=== PATIENT | female | born 1960 | race Caucasian/White ===

== ENCOUNTER → 2019-05-03 | Outpatient (CLI) | payer BC ==
[~2019-05-03] MED LIST: GLUC1TAB26 PO; LISI-334 PO; WARF7.5T45 PO
--- NOTE | 2019-05-03 15:56 | RAD ---
Exam: VENOUS LOWER EXTREMITY RIGHT Indication: Right leg pain Technique: Color-flow and pulsed wave duplex ultrasound with compression of venous structures of the right lower extremity. Comparison: None Available. Findings: Technically difficult examination due to patient's habitus. Duplex ultrasound with compression of the deep venous structures of the right lower extremity from the common femoral vein through the popliteal vein is negative for DVT. The posterior tibial and peroneal veins are segmentally visualized and patent where seen. Normal venous waveforms and augmentation are noted throughout. Impression: No evidence for DVT in the right lower extremity. Electronically signed by: Elia Tavera MD (05/03/2019 3:54 PM) [facility]
== END | disposition home or self-care (01) ==
LOC: DXRAD 14:49
PROVIDERS: ATTEND Family Medicine
DX: M79.604 Pain in right leg (principal)
CPT/HCPCS: 93971

== ENCOUNTER → 2020-12-04 | Outpatient (CLI) | payer BC ==
[~2020-12-04] MED LIST changes: -LISI-334 PO; +LISI20TA18 PO
--- NOTE | 2020-12-04 19:27 | CARD ---
MR#: [id number] Date of Study: 12/04/2020 Ordering Physician: MITCHELL RUIZ, Referring Physician: MITCHELL RUIZ, Tech: Lyubov Carrington, [facility] APPROVED REPORT EXAM: Two-dimensional and M-mode echocardiogram with Doppler and color Doppler. Other Information Quality : AverageHR: 74bpm Technically limited study due to INDICATION Congestive Heart Failure RISK FACTORS Hypertension Hyperlipidemia 2D DIMENSIONS RVDd3.3 (2.9-3.5cm)Left Atrium(2D)3.5 (1.6-4.0cm) IVSd1.4 (0.7-1.1cm)Aortic Root(2D)3.1 (2.0-3.7cm) LVDd5.4 (3.9-5.9cm)LVOT Diameter2.0 (1.8-2.4cm) PWd1.4 (0.7-1.1cm)LVDs4.0 (2.5-4.0cm) FS (%) 25.6 %SV70.3 ml LVEF(%)50.0 (>50%) Aortic Valve AoV Peak Jono.250.1cm/sAoV VTI51.4cm AO Peak GR.25.0mmHgLVOT Peak Jono.106.2cm/s LVOT VTI 24.08cmAO Mean GR.15mmHg DAYANNA (VMAX)1.57ut7LYP (VTI)1.50cm2 Mitral Valve MV E Aeuwkdma84.9cm/sMV DECEL UZIF170yn MV A Xkxtrcbe73.1cm/sE/A Ratio0.9 Pulmonary Valve PV Peak Gwlljuws26.9cm/sPV Peak Grad.3mmHg Tricuspid Valve TR P. Loywhajw351bx/sRAP QUOFRTWF8ljUn TR Peak Gr.07doFzCBZR77xxPa Pulmonary Vein S1 Vjqfzwjn33.6cm/sD2 [place]83.4cm/s LEFT VENTRICLE The left ventricle is normal size. There is moderate concentric left ventricular hypertrophy. The lef t ventricular systolic function is normal and the ejection fraction is within normal range. The Eject ion Fraction is 55-60%. There is normal LV segmental wall motion. Transmitral Doppler flow pattern is Grade I-abnormal relaxation pattern. RIGHT VENTRICLE The right ventricle is mildly dilated. There is normal right ventricular wall thickness. The right ve ntricular systolic function is normal. ATRIA The left atrium size is normal. The right atrium is borderline dilated. The interatrial septum is int act with no evidence for an atrial septal defect or patent foramen ovale as noted on 2-D or Doppler i maging. AORTIC VALVE The aortic valve is thickened but opens well. Doppler and Color Flow revealed no significant aortic r egurgitation. Calculated aortic valve area is 1.6 cm2 with maximum pressure gradient of 25 mmHg and m mg pressure gradient of 15 mmHg. There is trace valvular aortic stenosis. MITRAL VALVE The mitral valve is normal in structure and function. There is no evidence of mitral valve prolapse. There is no mitral valve stenosis. Doppler and Color-flow revealed trace mitral regurgitation. TRICUSPID VALVE The tricuspid valve is normal in structure and function. Doppler and Color Flow revealed trace tricus pid regurgitation with an estimated PAP of 31 mmHg. There is no tricuspid valve stenosis. PULMONIC VALVE The pulmonic valve is not well visualized. Doppler and Color Flow revealed trace pulmonic valvular re gurgitation. There is no pulmonic valvular stenosis. GREAT VESSELS The aortic root is normal in size. The ascending aorta is mildly dilated measuring 3.8 cm. The IVC is normal in size and collapses >50% with inspiration. PERICARDIAL EFFUSION There is no evidence of significant pericardial effusion. Critical Notification Critical Value: No <Conclusion> The left ventricular systolic function is normal and the ejection fraction is within normal range. T he Ejection Fraction is 55-60%. There is normal LV segmental wall motion. The ascending aorta is mildly dilated measuring 3.8 cm. Transmitral Doppler flow pattern is Grade I (mild diastolic dysfunction)-abnormal relaxation pattern. Signed by : Jurgen Barriga, Electronically Approved : 12/04/2020 19:26:52
== END ==
LOC: ECHO 14:46
PROVIDERS: ATTEND Family Medicine
DX: I35.8 Other nonrheumatic aortic valve disorders (principal); I50.32 Chronic diastolic (congestive) heart failure; I51.7 Cardiomegaly
CPT/HCPCS: 93306

== ENCOUNTER 2020-12-27 12:56 | Emergency (ER) | payer BC ==
[~2020-12-27] VITALS: Ht 172.7 cm; Wt 153.8 kg
[2020-12-27] MEDS ORDERED: ONDANSETRON PF 4 MG/2 ML VIAL. IVP ONE (13:30)
--- NOTE | 2020-12-27 13:52 | EKG ---
[address] [address] Test Date: 2020-12-27 Test Time: 13:42:08 Pat Name: BRIEN BOSWELL Department: Room: Gender: F Stepdown Nurse: ALECIA : [id number] Requested By: EMILY GUERRA Order Number: [id number] Reading MD: Measurements Intervals Cameron Rate: 95 P: 39 WV: 142 QRS: 19 QRSD: 90 T: 24 QT: 330 QTc: 418 Interpretive Statements SINUS RHYTHM VENTRICULAR PREMATURE COMPLEX(ES) ABNORMAL ECG RI6.02 No previous ECG available for comparison
[2020-12-27 14:00] VITALS: BP 140/74
[2020-12-27 14:05] LABS: BASO % 0 % (0-3); EOS % 0 % (0-3); HEMATOCRIT 40.6 % (36.0-47.0); HEMOGLOBIN 13.9 g/dL (12.0-15.5); LYMPH # 1.6 x10^3/uL (1.0-4.8); LYMPH % 28 % (24-48); MEAN CORPUSCULAR HEMOGLOBIN 29 pg (25-35); MEAN CORPUSCULAR HGB CONC 34 g/dL (31-37); MEAN CORPUSCULAR VOLUME 85 fL (79-100); MONO # 0.4 x10^3/uL (0.0-1.1); MONO % 7 % (0-9); NEUT # 3.8 x10^3uL (1.8-7.7); NEUT % 65 % (31-73); PLATELET COUNT 191 x10^3/uL (140-400); RED BLOOD COUNT 4.78 x10^6/uL (3.50-5.40); RED CELL DISTRIBUTION WIDTH 15.8 % (11.5-14.5); WHITE BLOOD COUNT 5.8 x10^3/uL (4.0-11.0)
--- NOTE | 2020-12-27 14:08 | RAD ---
EXAM: Chest, single view. HISTORY: Shortness of air. COMPARISON: None. FINDINGS: A frontal view of the chest obtained. There is suspected bilateral lower lobe interstitial infiltrate. There is no consolidation, pleural effusion or pneumothorax. There is enlargement of the cardiac silhouette, a component which is likely accentuated due to portable technique. IMPRESSION: . 1. Suspected bilateral lower lobe interstitial infiltrate. 2. Cardiomegaly. Electronically signed by: Екатерина Rosas MD (12/27/2020 2:06 PM) [id number]
[2020-12-27 14:13] LABS: CALCIUM 8.4 mg/dL (8.5-10.1); CREATININE 0.7 mg/dL (0.6-1.0); GFR 85.9; POTASSIUM 4.4 mmol/L (3.5-5.1)
[2020-12-27 14:30] LABS: ALBUMIN 3.7 g/dL (3.4-5.0); ALBUMIN/GLOBULIN RATIO 1.1 (1.0-1.7); MAGNESIUM 2.1 mg/dL (1.8-2.4); TOTAL BILIRUBIN 0.8 mg/dL (0.2-1.0)
[2020-12-27] MEDS ORDERED: PRED50TA PO (15:01)
[2020-12-27] MEDS ORDERED: ALBU2.5V8 INH (15:02)
[2020-12-27] MEDS ORDERED: ONDA4TAB12 PO (15:02)
[2020-12-27] MEDS ORDERED: AMOX1TAB61 PO (15:02)
--- NOTE | 2020-12-27 15:02 | PHYS DOC ---
Past History Past Medical History: DVT, High Cholesterol, Hypertension Additional Past Medical Histor: PE Past Surgical History: No Surgical History Additional Past Surgical Histo: Left Knee Tear/repair Smoking: Non-smoker Alcohol Use: None Drug Use: None Adult General Chief Complaint Chief Complaint: ABDOMINAL PAIN [facility] HPI Patient is a 60-year-old female patient with history of high cholesterol, hypertension, PEs on Xarelto, who presents to the ED today complaining of mild intermittent low back pain with nausea, symptoms began 4 days ago after being exposed to Covid. Patient states she went to [facility] without a mask and several people in the [facility] tested positive for Covid. Patient denies any chest pain. She states she has shortness of breath only when she has a mask on. Denies any abdominal pain. Denies anything specifically relieving her back pain but states she has had similar back pain before. Denies any trauma. Denies any numbness or tingling to bilateral lower extremities. Denies any loss of bowel/bladder functi on. Review of Systems Review of Systems Constitutional: Denies fever or chills [] Eyes: Denies change in visual acuity, redness, or eye pain [] HENT: Denies nasal congestion or sore throat [] Respiratory: Denies cough or shortness of breath [] Cardiovascular: No additional information not addressed in HPI [] GI: Reports nausea. Denies abdominal pain, vomiting, bloody stools or diarrhea [] : Denies dysuria or hematuria [] Musculoskeletal: Reports low back pain Integument: Denies rash or skin lesions [] Neurologic: Denies headache, focal weakness or sensory changes [] All other systems were reviewed and found to be within normal limits, except as documented in this note. Current Medications Current Medications Current Medications Medications (Trade) Dose Ordered Sig/[facility] Start Time Stop Time Status Last Admin Dose Admin Ondansetron HCl (Zofran) 4 mg 1X ONCE 12/27/20 13:30 12/27/20 13:37 DC Allergies Allergies Allergies Coded Allergies Type Severity Reaction Last Updated Verified levofloxacin Allergy Unknown numbness, chest pain 12/22/13 Yes oxycodone HCl Allergy Unknown numbness and chest pain 12/22/13 Yes Physical Exam Physical Exam Constitutional: Overweight patient, no acute distress, non-toxic appearance. [] HENT: Normocephalic, atraumatic, bilateral external ears normal, oropharynx moist, no oral exudates, nose normal. [] Eyes: PERRLA, EOMI, conjunctiva normal, no discharge. [] Neck: Normal range of motion, no tenderness, supple, no stridor. [] Cardiovascular:Heart rate regular rhythm, no murmur [] Lungs & Thorax: Short of air on exertion, diminished breath sounds posteriorly Abdomen: Bowel sounds normal, soft, no tenderness, no masses, no pulsatile masses. [] Skin: Warm, dry, no erythema, no rash. [] Back: No tenderness, no CVA tenderness. [] Extremities: No tenderness, no cyanosis, no clubbing, ROM intact, no edema. [] Neurologic: Alert and oriented X 3, normal motor function, normal sensory function, no focal deficits noted. [] Psychologic: Affect normal, judgement normal, mood normal. [] Current Patient Data Vital Signs Vital Signs Date Time Temp Pulse Resp B/P (MAP) Pulse Ox O2 Delivery O2 Flow Rate FiO2 12/27/20 14:00 98.6 94 20 140/74 95 Room Air Lab Results Laboratory Tests Test 12/27/20 13:45 White Blood Count 5.8 x10^3/uL (4.0-11.0) Red Blood Count 4.78 x10^6/uL (3.50-5.40) Hemoglobin 13.9 g/dL (12.0-15.5) Hematocrit 40.6 % (36.0-47.0) Mean Corpuscular Volume 85 fL (79-100) Mean Corpuscular Hemoglobin 29 pg (25-35) Mean Corpuscular Hemoglobin Concent 34 g/dL (31-37) Red Cell Distribution Width 15.8 % (11.5-14.5) H Platelet Count 191 x10^3/uL (140-400) Neutrophils (%) (Auto) 65 % (31-73) Lymphocytes (%) (Auto) 28 % (24-48) Monocytes (%) (Auto) 7 % (0-9) Eosinophils (%) (Auto) 0 % (0-3) Basophils (%) (Auto) 0 % (0-3) Neutrophils # (Auto) 3.8 x10^3uL (1.8-7.7) Lymphocytes # (Auto) 1.6 x10^3/uL (1.0-4.8) Monocytes # (Auto) 0.4 x10^3/uL (0.0-1.1) Eosinophils # (Auto) 0.0 x10^3/uL (0.0-0.7) Basophils # (Auto) 0.0 x10^3/uL (0.0-0.2) Sodium Level 140 mmol/L (136-145) Potassium Level 4.4 mmol/L (3.5-5.1) Chloride Level 102 mmol/L (98-107) Carbon Dioxide Level 31 mmol/L (21-32) Anion Gap 7 (6-14) Blood Urea Nitrogen 7 mg/dL (7-20) Creatinine 0.7 mg/dL (0.6-1.0) Estimated GFR (Cockcroft-Gault) 85.9 BUN/Creatinine Ratio 10 (6-20) Glucose Level 138 mg/dL (70-99) H Calcium Level 8.4 mg/dL (8.5-10.1) L Magnesium Level 2.1 mg/dL (1.8-2.4) Total Bilirubin 0.8 mg/dL (0.2-1.0) Aspartate Amino Transferase (AST) 51 U/L (15-37) H Alanine Aminotransferase (ALT) 46 U/L (14-59) Alkaline Phosphatase 80 U/L (46-116) Creatine Kinase 147 U/L (26-192) Creatine Kinase MB (Mass) 0.6 ng/mL (0.0-3.6) Creatine Kinase MB Relative Index 0.4 % (0-4) Troponin I Quantitative < 0.017 ng/mL (0-0.055) TG-Uut-V-Type Natriuretic Peptide 57 pg/mL (0-124) Total Protein 7.0 g/dL (6.4-8.2) Albumin 3.7 g/dL (3.4-5.0) Albumin/Globulin Ratio 1.1 (1.0-1.7) EKG EKG [address] Mahan sinus rhythm HR 95 no STEMI[] Radiology/Procedures Radiology/Procedures []PROCEDURE: PORTABLE CHEST 1V EXAM: Chest, single view. HISTORY: Shortness of air. COMPARISON: None. FINDINGS: A frontal view of the chest obtained. There is suspected bilateral lower lobe interstitial infiltrate. There is no consolidation, pleural effusion or pneumothorax. There is enlargement of the cardiac silhouette, a component which is likely accentuated due to portable technique. IMPRESSION: . 1. Suspected bilateral lower lobe interstitial infiltrate. 2. Cardiomegaly. Electronically signed by: Екатерина Miranda MD (12/27/2020 2:06 PM) [id number] DICTATED AND SIGNED BY: ЕКАТЕРИНА MIRANDA MD DATE: 12/27/20 0637 CC: MITCHELL RUIZ MD; EMERGENCY,DEPARTMENT; EMILY GUERRA [employer] ~MTH0 0 Heart Score C/O Chest Pain: N/A Risk Factors: Risk Factors: DM, Current or recent (<one month) smoker, HTN, HLP, family history of CAD, obesity. Risk Scores: Risk Factors: DM, Current or recent (<one month) smoker, HTN, HLP, family history of CAD, obesity. Course & Med Decision Making Course & Med Decision Making Pertinent Labs and Imaging studies reviewed. (See chart for details) This is a 60-year-old female patient presenting to the ED today complaining of nausea and low back pain, symptoms began 4 days ago. Patient is also concerned she was exposed to COVID-19 at discharge. Patient is afebrile, O2 sats on arrival to the ED is 94% Chest x-ray suspected bilateral lower lobe interstitial infiltrate. Cardiomegaly. CBC CMP with no acute findings. UA is still pending. Started on Rocephin. Offered admission which she refused. Pending covid 19 test. Instructed to quarantine herself until results are back Discharge home, follow-up with PCP next week Dragon Disclaimer Dragon Disclaimer This electronic medical record was generated, in whole or in part, using a voice recognition dictation system. Departure Departure: Impression: Primary Impression: Person under investigation for COVID-19 Additional Impressions: Bilateral pneumonia Nausea Back pain Disposition: HOME / SELF CARE / HOMELESS Condition: STABLE Referrals: MITCHELL RUIZ MD (PCP) Follow-up next week Patient Instructions: Back Pain, Adult, [id number], Nausea, Adult, Pneumonia, Adult Additional Instructions: Your Chest x-ray shows suspected bilateral pneumonia which is very common in patients with Covid. We tested you for COVID. We will call you with results. Maintain good hand hygiene, wear your mask around other people. Please come back to the ED at any point symptoms worsen. Scripts Albuterol Sulfate (PROVENTIL HFA INHALER) 6.7 Gm Hfa.aer.ad 1 PUFF INH PRN Q4HRS PRN for FOR ASTHMA, #1 EACH 0 Refills Prov: EMILY GUERRA APRN 12/27/20 Ondansetron (ONDANSETRON ODT) 4 Mg Tab.rapdis 1 TAB PO PRN Q6-8HRS, #16 TAB Prov: EMILY GUERRA APRN 12/27/20 Amoxicillin/Potassium Clav (AUGMENTIN 875-125 TABLET) 1 Each Tablet 1 TAB PO BID for 10 Days, #20 TAB 0 Refills Prov: EMILY GUERRA APRN 12/27/20 Prednisone (PREDNISONE) 50 Mg Tablet 1 TAB PO DAILY, #5 TAB Prov: EMILY GUERRA APRN 12/27/20 Problem Qualifiers Additional Impressions: Bilateral pneumonia Pneumonia type: due to unspecified organism Lung location: lower lobe of lung Qualified Codes: J18.9 - Pneumonia, unspecified organism Back pain Back pain location: low back pain Chronicity: acute Back pain laterality: bilateral Sciatica presence: without sciatica Qualified Codes: M54.5 - Low back pain EMILY GUERRA APRN Dec 27, 2020 15:02
[2020-12-27] MEDS ORDERED: cefTRIAXone SODIUM 1 GM VIAL ONE (15:09)
[2020-12-27] MEDS ORDERED: IV NORMAL SALINE 50ML 50 ML ONE (15:09)
== END 2020-12-27 15:25 | disposition home or self-care (01) ==
LOC: ER 12:56
DX: U07.1 COVID-19 (principal); J18.9 Pneumonia, unspecified organism; M54.5 Low back pain; E78.5 Hyperlipidemia, unspecified; I10 Essential (primary) hypertension
CPT/HCPCS: 71045; 80053; 82553; 83735; 83880; 84484; 85025; 93005; 96365; 99285; C9803; J0696; U0003

== ENCOUNTER → 2021-02-23 | Outpatient (CLI) | payer BC ==
[~2021-02-23] MED LIST changes: +ALBU2.5V8 INH; +AMOX1TAB61 PO; +ONDA4TAB12 PO; +PRED50TA PO
--- NOTE | 2021-02-23 12:25 | RAD ---
EXAM: XR EXAM OF ANKLE_RIGHT 3VIEWS, XR FOOT_RIGHT 3 VIEWS 02/23/2021 11:50 AM CLINICAL INDICATION: Slipped and twisted foot, swollen and bruised COMPARISON: None TECHNIQUE: 3 views of the right foot and 3 views of the right ankle FINDINGS: Right ankle: Fifth metatarsal fracture described below. No acute fracture of the ankle. Alignment is normal. Ankle mortise is symmetric and talar dome is intact. There are prominent Achilles and plantar calcaneal insertional enthesophyte. Thickening of the distal Achilles tendon stripe with dystrophic calcifications. Right foot: There is a minimally displaced oblique fracture of the fifth metatarsal shaft distally. N o other fracture or malalignment. Joint spaces are maintained. Calcaneal enthesophytes as above. Ther e is soft tissue swelling of the forefoot. IMPRESSION: 1. Acute minimally displaced fracture of the right fifth metatarsal shaft. 2. No acute osseous abnormality of the right ankle. Electronically signed by: Litzy Fagan MD (02/23/2021 12:22 PM) [id number]
== END ==
LOC: RAD 11:43
PROVIDERS: ATTEND Family Medicine
DX: S92.351A Displaced fracture of fifth metatarsal bone, right foot, initial encounter for closed fracture (principal); M79.89 Other specified soft tissue disorders; X58.XXXA Exposure to other specified factors, initial encounter; Y93.89 Activity, other specified; Y92.89 Other specified places as the place of occurrence of the external cause; Y99.8 Other external cause status
CPT/HCPCS: 73610; 73630

== ENCOUNTER → 2021-03-02 | Outpatient (CLI) | payer BC ==
--- NOTE | 2021-03-02 15:35 | RAD ---
EXAM: Right foot, 3 views. HISTORY: Fracture follow-up. COMPARISON: 02/23/2021 FINDINGS: 3 views of the right foot are obtained. There has been no significant interval healing of a mildly displaced oblique fracture of the mid to distal fifth metatarsal. There is approximately 1 co rtical width displacement along the fracture line. There is a small plantar spur. There is a prominen t enthesophyte at the Achilles tendon insertion. IMPRESSION: No significant interval healing of an oblique fracture of the fifth metatarsal. Electronically signed by: Екатерина Rosas MD (03/02/2021 3:32 PM) [id number]
== END ==
LOC: RAD 12:24
PROVIDERS: ATTEND Family Medicine
DX: S92.345D Nondisplaced fracture of fourth metatarsal bone, left foot, subsequent encounter for fracture with routine healing (principal); M77.31 Calcaneal spur, right foot; M76.61 Achilles tendinitis, right leg; X58.XXXD Exposure to other specified factors, subsequent encounter
CPT/HCPCS: 73630

== ENCOUNTER → 2021-03-28 | Outpatient (CLI) | payer OTHER ==
--- NOTE | 2021-03-28 11:11 | RAD ---
EXAM: Right foot 3 views. HISTORY: Fracture follow-up. COMPARISON: 03/02/2021. FINDINGS: Three views of the right foot are obtained. An oblique fracture of the fifth metatarsal distal metaphysis is in unchanged alignment. Shortening m easures 3 mm. There is mild medial and dorsal displacement. There is early periosteal reaction consis tent with healing. Forefoot soft tissue swelling is noted. There are large posterior and moderate plantar calcaneal spurs. There is mild hallux valgus. IMPRESSION: 1. Healing fracture of the fifth metatarsal in unchanged alignment. Electronically signed by: Bruno Ramírez MD (03/28/2021 11:08 AM) [id number]
== END ==
LOC: RAD 09:23
PROVIDERS: ATTEND Family Medicine
DX: S92.351D Displaced fracture of fifth metatarsal bone, right foot, subsequent encounter for fracture with routine healing (principal); M79.89 Other specified soft tissue disorders; M77.31 Calcaneal spur, right foot; M20.11 Hallux valgus (acquired), right foot; X58.XXXD Exposure to other specified factors, subsequent encounter
CPT/HCPCS: 73630